=== PATIENT | male | born 1975 | race Caucasian/White ===

== ENCOUNTER 2025-05-17 14:27 | Emergency (ER) | payer OTHER, SELFPAY ==
--- NOTE | 2025-05-17 14:31 | ED.DENTAL ---
HPI - Dental/Oral General Chief complaint: Dental/Oral Stated complaint: tooth pain, jaw is swollen Time Seen by Provider: 05/17/25 14:31 Patient presents to the [facility] with complaints of left lower dental pain and swelling that began over the last couple days. Patient noted a broken 2 several months ago. noted he does have an appointment scheduled with the dentist at the end of May but is concerned about infection. Patient reports using ibuprofen without relief of symptoms. Related Data Allergies Allergy/AdvReac Type Severity Reaction Status Date / Time No Known Allergies Allergy Verified 05/17/25 14:40 Review of Systems Constitutional: Constitutional: Reports as per HPI, Denies chills, Denies fatigue, Denies fever(s) and Denies weakness ENT: Reports as per HPI, Denies dysphagia, Denies vertigo, Denies dizziness, Denies epistaxis, Denies nasal congestion and Denies sore throat Comments: dental pain Cardiovascular: Cardiovascular: Reports no additional cardiovascular complaints Respiratory: Respiratory: Reports no additional respiratory complaints Gastrointestinal: Gastrointestinal: Reports no additional gastrointestinal complaints Musculoskeletal: Musculoskeletal: Reports no additional musculoskeletal complaints Neurologic: Reports system reviewed and no additional complaints, except as documented Psychiatric: Psychiatric: Reports no additional psychiatric complaints Endocrine: Endocrine: Reports no additional endocrine complaints Hematologic/Lymphatic: Hematologic/Lymphatic: Reports no additional hematologic/lymphatic complaints Allergic/Immunologic: Allergic/Immunologic: Reports no additional allergic/immunologic complaints Exam Const: General: healthy appearing and no acute distress Nutritional Appearance: well nourished Orientation/consciousness: patient oriented x3 Limitations: no limitations HENMT: Teeth and gingiva: abnormal dentition and abnormal tooth and associated gingiva (1st molar left lower ) Throat: posterior oropharynx normal Neck: Neck: no lymphadenopathy Resp: Effort & Inspection: normal respiratory effort Auscultation: clear to auscultation bilaterally Cardio: Rate: regular rate Rhythm: regular rhythm Skin: General skin exam: normal color Rashes: no rashes Wounds: no wounds Other: Mild swelling left lower jaw Neuro: General: patient oriented x3 Speech: normal speech Gait exam (Neuro): Normal gait present Psych: Mental Status: mental status grossly normal Affect: normal affect Attitude: cooperative Course Course Level of Care: Express Care Visit MDM - Dental/Oral MDM Narrative Medical decision making narrative: Discharge instructions reviewed with patient, as well as provided in writing per nursing staff. The instructions also include specific and strict return/GO TO THE ER as well as f/u information. All questions have been answered, and the patient deny any further questions with discharge and discharge plan. Differential Diagnosis Differential diagnosis: Likely gingival abscess, dental caries and dental abscess Medical Records Attestation: I reviewed the patient's medical records. Discharge Plan Discharge Clinical Impression: Dental abscess, Elevated blood pressure reading Patient Disposition: Home Condition: Stable Instructions: Antibiotic Form, Dental Abscess (ED), Toothache (ED) Additional Instructions: Take antibiotic until it's gone. Brushing teeth at least twice daily with gentle flossing. Avoid temperature extremes---when you eat. Salt gargle to rinse your mouth after every meal You may apply ice to the face to reduce pain/swelling. For pain, you may take: Tylenol 650-1000mg by mouth every 4-6 hours. Do not exceed 4000mg in 24 hours. Advil (Ibuprofen) 600 mg by mouth every 6 hours. Do not exceed 2400mg in 24 hours. Also, recommend regular dental check up one-two times a year to prevent tooth decay and other periodontal disease. Your blood pressure was elevated in the Urgent care. It is very important for you to follow up with a primary provider for further evaluation. Uncontrolled hypertension can lead to a stroke, heart attack, kidney failure and other more serious conditions if left untreated. Your blood pressure was elevated in the Express care today. A diagnosis of hypertension cannot be made on one visit. It is important to follow up with a primary care provider (PCP) about your blood pressure. Left untreated, high blood pressure can lead to heart attack, stroke, organ failure, kidney failure, erectile dysfunction and even . Some things that can help lower blood pressure are lifestyle modifications, such as light exercise, decreased salt in diet, and weight loss. It is important to follow up with a PCP about this within 1 week. Patient Language: Beninese Prescriptions: New amoxicillin 500 mg capsule 500 mg PO TID Qty: 30 0RF lidocaine HCl [Lidocaine Viscous] 2 % solution 1 applic mucous membrane QID PRN (Reason: pain) Qty: 100 0RF Follow-up/Referrals: PHYSICIAN,NUMERICAL CONTROL PROGRAMMER [Primary Care Provider] - Time of Disposition: 14:52
[2025-05-17 14:34] VITALS: BP 183/105; PULSE 104; RESP 20; TEMP 37.2; O2SAT 99
[2025-05-17 14:47] VITALS: BP 162/98
== END 2025-05-17 14:56 | disposition home or self-care (01) ==
PROVIDERS: Emergency Provider Nurse Practitioner Family
DX: K04.7 Periapical abscess without sinus (principal); R03.0 Elevated blood-pressure reading, without diagnosis of hypertension
CPT/HCPCS: 99203; G0463

== ENCOUNTER 2025-05-31 14:22 | Emergency (ER) | payer OTHER, SELFPAY ==
[2025-05-31 14:31] VITALS: BP 161/116; PULSE 83; RESP 18; TEMP 37.3; O2SAT 100
--- NOTE | 2025-05-31 14:40 | ED.GENADULT ---
HPI - General Adult General Chief complaint: Dental/Oral Stated complaint: tooth pain Time Seen by Provider: 05/31/25 14:40 Source: patient Mode of arrival: ambulatory Limitations: no limitations History of Present Illness HPI narrative: 50-year-old male patient presents to [facility] with complaints of left-sided dental pain x3 days. Patient was recently treated with amoxicillin for dental infection. Patient states he does have a follow-up with the dentist at the end of the month but states that he finished his antibiotic about 3-4 days ago but feels like the swelling and pain is starting to come back and that it really never fully went away. Patient denies active fevers body aches or chills at this time. Patient states he has been taking Tylenol and ibuprofen for the pain which has helped. Patient states he is aware that his blood pressure is elevated he does not have a current doctor at this time. Related Data Allergies Allergy/AdvReac Type Severity Reaction Status Date / Time No Known Allergies Allergy Verified 05/31/25 14:31 Review of Systems Review of Systems: CONSTITUTIONAL: Denies fever, chills, or sweats. EYES: Denies visual changes, redness, or discharge. ENT: Denies rhinorrhea, congestion, sore throat, or otalgia. Positive left-sided dental pain times 3-4 days CARDIOVASCULAR: Denies chest pain, palpitations, or edema. RESPIRATORY: Denies cough or dyspnea. GASTROINTESTINAL: Denies abdominal pain, nausea, vomiting, or diarrhea. GENITOURINARY: Denies dysuria or hematuria. SKIN: Denies rash or itching. MUSCULOSKELETAL: Denies back pain, joint pain, or myalgia. NEUROLOGIC: Denies headache, numbness, or weakness. PSYCHIATRIC: Denies anxiety or depression. [facility] Past Medical History Medical History (Updated 05/31/25 @ 14:56 by VALERIO Du) Hypertension Comments At the time of my signature I agree with nursing past medical history, surgical, social, and family history. There is no relevant family history pertinent to the presenting complaint. Exam Narrative: GENERAL: Well-appearing, well-nourished, and in no acute distress. HEAD: Normocephalic, atraumatic. EYES: PERRLA and EOMI. ENT: Nares clear, no rhinorrhea or epistaxis. Mucous membranes moist. has swelling noted to the left cheek on visual evaluation of the oral cavity the left lower oral cavity along the 2nd molar does appear fractured. Patient does have a feeling to this area and does have slight tenderness and surrounding erythema. No active discharge at this time. NECK: Supple. No lymphadenopathy CHEST: Clear to auscultation. No respiratory distress. HEART: Regular rate and rhythm. No murmur heard. Normal peripheral pulses. ABDOMEN: Soft, nontender, nondistended, normal active bowel sounds. EXTREMITIES: Normal range of motion. No edema. SKIN: Warm, dry, no rash. NEURO: No focal deficits. Alert and oriented x3. Course Course Level of Care: Express Care Visit Vital Signs Vital signs: Vital Signs Temperature 37.3 C 05/31/25 14:31 Pulse Rate 83 05/31/25 14:31 Respiratory Rate 18 05/31/25 14:31 Blood Pressure 161/116 H 05/31/25 14:31 Pulse Oximetry 100 05/31/25 14:31 Oxygen Delivery Room Air 05/31/25 14:31 Temperature 37.3 C 05/31/25 14:31 Pulse Rate 83 05/31/25 14:31 Respiratory Rate 18 05/31/25 14:31 Blood Pressure 161/116 H 05/31/25 14:31 Pulse Oximetry 100 05/31/25 14:31 Oxygen Delivery Room Air 05/31/25 14:31 Vital signs reviewed. The patient has been informed that they may have pre-hypertension or Hypertension based on a BP reading in the department. I recommend that the patient call the primary care provider listed on their discharge instructions or a physician of their choice this week to arrange follow up for further evaluation of possible pre-hypertension or Hypertension Medical Decision Making MDM Narrative Medical decision making narrative: Discussed with patient that we will prescribe him a different antibiotic today, Augmentin that should work a little bit better than just plain amoxicillin for his toothache. Encouraged patient to continue to follow-up with his dentist as scheduled and may take Tylenol ibuprofen for the pain. Discussed with patient that we will also provide him a primary doctor referral to assess his hypertension but if patient develops any chest pain, shortness of breath, fever body aches or chills he needs to go to the emergency department right away for evaluation. Discussed with patient excludes to avoid wall he has a dental infection and also discussed with him the correlation between and dental infection and his heart. Patient is aware the plan of care denies any other questions or concerns at this time. Differential Diagnosis Differential Diagnosis: Differential diagnosis: Dental caries, periodontal disease, avulsed tooth, tooth infections, mandibular infection, Zbigniew's angiana, upper tooth infection, dry socket, gingivitis, acute necrotizing ulcerative gingivitis, sialolithiasis. Vital Signs Vital Signs: Vital Signs Temperature 37.3 C 05/31/25 14:31 Pulse Rate 83 05/31/25 14:31 Respiratory Rate 18 05/31/25 14:31 Blood Pressure 161/116 H 05/31/25 14:31 Pulse Oximetry 100 05/31/25 14:31 Oxygen Delivery Room Air 05/31/25 14:31 Temperature 37.3 C 05/31/25 14:31 Pulse Rate 83 05/31/25 14:31 Respiratory Rate 18 05/31/25 14:31 Blood Pressure 161/116 H 05/31/25 14:31 Pulse Oximetry 100 05/31/25 14:31 Oxygen Delivery Room Air 05/31/25 14:31 Critical Care Time Critical Care Time Critical Care Time: No Discharge Plan Discharge Clinical Impression: Dental caries, Toothache Fracture of tooth Qualifiers: Encounter type: initial encounter Fracture type: open Qualified Code(s): S02.5XXB - Fracture of tooth (traumatic), initial encounter for open fracture Patient Disposition: Home Condition: Stable Instructions: Antibiotic Form, Toothache (ED) Additional Instructions: Antibiotic as directed Avoid temperature extremes May apply heat or ice to the face Gentle brushing and flossing Alternate Tylenol and ibuprofen as needed for pain Follow-up with the dentist as soon as possible--see the list provided Patient Language: Omani Prescriptions: New amoxicillin-pot clavulanate 875-125 mg tablet 1 tablet PO Q12H 10 Days Qty: 20 0RF Follow-up/Referrals: Edgard Ahumada MD [Physician] - PHYSICIAN,PHARMACY SALESPERSON [Primary Care Provider] - Time of Disposition: 14:51
[2025-05-31 14:49] VITALS: BP 160/98
== END 2025-05-31 14:57 | disposition home or self-care (01) ==
PROVIDERS: Emergency Provider Nurse Practitioner Family
DX: K02.9 Dental caries, unspecified (principal); S02.5XXA Fracture of tooth (traumatic), initial encounter for closed fracture; X58.XXXA Exposure to other specified factors, initial encounter; I10 Essential (primary) hypertension
CPT/HCPCS: 99213; G0463